=== PATIENT | male | born 1965 | race Caucasian/White ===

== ENCOUNTER 2023-11-11 12:58 | Emergency (ER) | payer MEDICAID ==
[~2023-11-11] VITALS: Ht 170.2 cm; Wt 63.5 kg
[2023-11-11 13:17] VITALS: BP 155/107; PULSE 124; RESP 20; TEMP 98.3; O2SAT 99
[2023-11-11] MEDS ORDERED: TOMOMETER 1 DEV DEV MC ONE (14:44)
[2023-11-11 14:56] LABS: BASOPHILS % (AUTO) 0.9 % (0.0-2.0); EOSINOPHILS % (AUTO) 0.4 % (0.0-4.0); HEMATOCRIT 30.2 % (36-52); HEMOGLOBIN 10.4 g/dL (12.0-18.0); LYMPHOCYTES # (AUTO) 0.5 K/uL (2.0-11.5); LYMPHOCYTES % (AUTO) 12.1 % (20.5-51.1); MEAN CORPUSCULAR HEMOGLOBIN 32 pg (27-31); MEAN CORPUSCULAR HGB CONC 34 g/dL (33-37); MONOCYTES # (AUTO) 0.7 K/uL (0.8-1.0); MONOCYTES % (AUTO) 14.7 % (1.7-9.3); NEUTROPHILS # (AUTO) 3.2 K/uL (1.8-7.7); NEUTROPHILS % (AUTO) 71.9 % (42.2-75.2); PLATELET COUNT (AUTO) 261 K/uL (140-450); RED BLOOD CELL COUNT(AUTO) 3.29 MIL/uL (4.20-6.10); RED CELL DISTRIBUTION WIDTH 15.1 % (11.6-13.7); WHITE BLOOD COUNT (AUTO) 4.4 K/uL (4.8-10.8)
[2023-11-11] MEDS: NACL 0.9% 1,000 ML IV ONE (15:01)
[2023-11-11] MEDS: TETRACAINE HCL/PF 0.5% OPTH 4 ML BTL OP ONE (15:03)
[2023-11-11] MEDS: FLUORESCEIN OPTH STRIP 1 MG OP ONE (15:04)
[2023-11-11 15:15] LABS: ANION GAP 13.5 (8-16); CALCIUM 8.1 mg/dL (8.5-10.1); POTASSIUM 4.5 mmol/L (3.5-5.1)
[2023-11-11 15:23] LABS: APPEARANCE,URINE CLEAR (CLEAR); BILIRUBIN,URINE NEGATIVE (NEGATIVE); BLOOD, URINE 3+ (NEGATIVE); COLOR,URINE YELLOW (YELLOW); LEUKOCYTE ESTERASE ,URINE NEGATIVE (NEGATIVE); NITRITE, URINE NEGATIVE (NEGATIVE); PROTEIN,URINE 1+ (NEGATIVE); UGLUCOSE NEGATIVE (NEGATIVE); UROBILINOGEN,URINE 0.2 EU/dL (0.2 - 1)
[2023-11-11 15:23] LABS: ALANINE AMINOTRANSFERASE 14 U/L (12-78); ALBUMIN 2.8 g/dL (3.4-5.0); ALKALINE PHOSPHATASE 76 U/L (50-136); ASPARTATE AMINOTRANSFERASE 28 U/L (15-37); BILIRUBIN,DIRECT 0.1 mg/dL (0.0-0.3); CREATINE KINASE, TOTAL 67 U/L (39-308); TOTAL BILIRUBIN 0.3 mg/dL (0.0-1.0)
[2023-11-11 15:28] LABS: LACTIC ACID 1.1 mmol/L (0.4-2.0)
[2023-11-11 15:36] LABS: BACTERIA,URINE 10-30 (MOD) /HPF (None Seen); RBC,URINE 11-20 (MOD) /HPF (0-5); SQUAMOUS EPITHELIAL CELL,UR 0-3 (FEW) /LPF (0-3 (FEW)); WBC,URINE 0-5 /HPF (0-5)
[2023-11-11 15:39] LABS: INR 0.99 (0.8-1.2); PARTIAL THROMBOPLASTIN TIME 31.7 secs (22-35.6); PROTHROMBIN TIME 10.4 secs (10.8-13.4)
[2023-11-11 20:56] VITALS: BP 146/96; PULSE 99; RESP 16; TEMP 97.3; O2SAT 99
== END 2023-11-11 20:56 | disposition short-term general hospital (02) ==
LOC: MED 12:58
DX: C71.1 Malignant neoplasm of frontal lobe (principal); H54.61 Unqualified visual loss, right eye, normal vision left eye; N17.9 Acute kidney failure, unspecified; J90 Pleural effusion, not elsewhere classified; R22.42 Localized swelling, mass and lump, left lower limb; Z79.899 Other long term (current) drug therapy; Z88.0 Allergy status to penicillin
CPT/HCPCS: 36415; 70450; 71045; 80048; 80076; 81001; 82550; 83605; 83880; 84484; 85025; 85610; 85651; 85730; 86140; 87040; 87086; 93005; 93971; 96360; 99291; 99292; J7030; Q0092

== ENCOUNTER 2023-11-24 18:58 | Emergency (ER) | payer MEDICAID, OTHER ==
[~2023-11-24] VITALS: Ht 170.2 cm; Wt 74.8 kg
[2023-11-24 19:04] VITALS: BP 104/75; PULSE 102; RESP 18; TEMP 98.4; O2SAT 99
== END 2023-11-24 22:59 | disposition home or self-care (01) ==
LOC: MED 18:58
DX: T83.032A Leakage of nephrostomy catheter, initial encounter (principal); Z48.00 Encounter for change or removal of nonsurgical wound dressing; Z79.899 Other long term (current) drug therapy
CPT/HCPCS: 99281